=== PATIENT | female | born 1970 | race African-American/Black ===

== ENCOUNTER 2017-01-21 16:14 | Emergency (ER) | payer BC ==
[~2017-01-21] VITALS: Ht 167.6 cm; Wt 83.9 kg
--- NOTE | ~2017-01-21 | CR72 ---
[facility] A Service of [facility] & [facility] RADIOLOGY TEXT RESULTS PATIENT: MARYLU MULLINS LOCATION: SED : 72 UNIT #: [id number] AGE: [address]: LOGAN LOWERY SEX: F ORDER DR: [id number] [address] [id number] [id number] E MR#: [id number] Acc #: [id number] NAME: MARYLU MULLINS : 1970 SEX: F STUDY DATE/TIME: 01/21/2017 16:49 UNIT: SED ROOM: STUDY DESCRIPTION: CR Chest Single View Portable Attending Physician: Logan Lowery Aprn Ordering Physician: Logna Lowery Aprn Primary Care Physician: Primary Care Physician No MEDICAL IMAGING REPORT This report is preliminary unless electronic signature is present. EXAM AP radiograph of chest 01/21/2017 HISTORY Chest pain. Chest pain dizzy one week duration. FINDINGS AP radiograph of the chest obtained in lordotic projection. Study somewhat limited by AP lordotic technique and patient large body habitus. The heart is mildly enlarged. The lungs are well inflated without clear indication of acute infectious or inflammatory disease. Pleural effusion or pneumothorax. No suspicious nodule. The bony structures show no acute abnormality. Dictated by... Nate Webster M.D. THIS IS AN ELECTRONICALLY VERIFIED REPORT Nate Webster M.D. at 01/22/2017 9:31 PM JOSE/esthela TD: 01/21/2017 23:17 JOB #: [id number] MEDICAL IMAGING REPORT Page 1 of 1
--- NOTE | ~2017-01-21 | EKG ---
PATIENT: MARYLU MULLINS UNIT #: [id number] Ventricular Rate: 76 BPM Atrial Rate: 76 BPM P-R Interval: 140 ms QRS Duration: 68 ms Q-T Interval: 376 ms QTC Calculation(Bezet): 423 ms P Harrison: 33 degrees Calculated R Harrison: 1 degrees Calculated T Harrison: 16 degrees Diagnosis Line: Normal sinus rhythm Diagnosis Line: Normal ECG Diagnosis Line: When compared with ECG of 02-SEP-2015 18:38, Diagnosis Line: No significant change was found Diagnosis Line: Confirmed by YAN PALM MD ([id number]) on Diagnosis Line: 01/25/2017 8:22:14 AM INTERPRETING MD: NÉSTOR NAYAK
[~2017-01-21 16:14] MED LIST: MACROBID100 MG PO; MOTION RELIEF25 MG PO; NO MEDICATIONS; TYLENOL #3 PO; ZOFRAN ODT4 MG PO
[2017-01-21 17:08] LABS: BASOPHIL# 0.1 X10e3 (0-0.3); BASOPHIL% 1.2 % (0-2.5); EOSINOPHIL# 0.1 X10e3 (0-0.7); HEMOGLOBIN 13.3 gm/dL (12.0-16.0); LYMPHOCYTE# 1.7 X10e3 (1.0-3.5); MEAN CORPUSCULAR HEMOGLOBIN 27.2 PG (28-34); MEAN CORPUSCULAR HGB CONC 33.2 g/dL (30-36); MEAN PLATELET VOLUME 8.5 FL (6.5-11.5); MONOCYTE# 0.4 X10e3 (0-1.0); MONOCYTE% 9.3 % (3.0-12.0); NEUTROPHIL# 2.4 X10e3 (1.5-7.1); NEUTROPHIL% 50.5 % (40-75); PLATELET COUNT 272 X10e3 (140-420); RED BLOOD COUNT 4.88 X10e (3.90-5.30); RED CELL DISTRIBUTION WIDTH 15.4 % (11.0-15.5); WHITE BLOOD COUNT 4.8 X10e3 (4.0-10.5)
[2017-01-21 17:11] LABS: POC - CKMB 1.5 ng/mL (0.0-7.9); POC - MYOGLOBIN 69.4 ng/mL (0.0-169.0); POC - TROPONIN <0.05 ng/mL (<=0.05)
[2017-01-21 17:26] LABS: BUN/CREATININE RATIO 18.75; CALCIUM SERUM 8.7 mg/dL (8.4-10.2); CREATININE SERUM 0.8 mg/dL (0.6-1.4); DIFF IND NO; GLOM FILT RATE Estimated 103.3 mL/min (>60); POTASSIUM 3.9 mmol/L (3.5-5.1)
[2017-01-21 18:46] LABS: POC - CKMB 1.1 ng/mL (0.0-7.9); POC - MYOGLOBIN 69.2 ng/mL (0.0-169.0); POC - TROPONIN <0.05 ng/mL (<=0.05)
== END 2017-01-21 20:05 | disposition home or self-care (01) ==
LOC: SED 16:14
PROVIDERS: Nurse Practitioner Family
DX: R07.89 Other chest pain (principal); F17.210 Nicotine dependence, cigarettes, uncomplicated
CPT/HCPCS: 36415; 71010; 80048; 82553; 83874; 84484; 84703; 85025; 93005; 96360; 99285